=== PATIENT | female | born 1950 | race Caucasian/White ===

== ENCOUNTER 2018-02-03 08:06 | Day surgery (SDC) | payer MEDICARE, BC ==
[2018-02-03] MEDS ORDERED: KETAMINE HCL 100MG/1ML VIAL INJ ONE (08:07)
[2018-02-03] MEDS ORDERED: PROPOFOL 10 MG/ML VIAL IV ONE (08:07)
[2018-02-03] MEDS ORDERED: LIDOCAINE 1% W/EPI 1:200,000 MPF 30ML SQ ONE (08:07)
[2018-02-03] MEDS ORDERED: ACETAMINOPHEN 1,000 MG/100 ML BTL IV ONE (10:45)
[2018-02-03] MEDS ORDERED: CLINDAMYCIN PHOS/D5W 900MG 900 MG/50 ML BAG IVPB ONE (10:45)
--- NOTE | 2018-02-03 13:00 | Operative Note ---
DATE OF SURGERY: 02/03/2018 Surgeon: William Lawrence MD PREOPERATIVE DIAGNOSIS: Healing fracture of the right tibia. POSTOPERATIVE DIAGNOSIS: Healing fracture of the right tibia. OPERATION: Removal of proximal locking screw right tibia. Anesthesia: Local with sedation. PREPARATION: Chloraprep. INDIVIDUAL CONSIDERATIONS: None. PROCEDURE: The patient was taken to the operating room, had a successful induction of IV sedation. Her right leg was prepped and draped in the usual fashion. Lidocaine 1% was infiltrated around the proximal locking screw, an approximately 1 cm incision was then made. A [place] elevator was used to free the tissue on top of the screw. The screw was then easily removed. After gentle irrigation with saline, the skin was closed with bryson and a dressing was applied. She was taken back to recovery in good condition. There were no complications. MARCIE
== END 2018-02-03 10:45 | disposition home or self-care (01) ==
LOC: SUR 08:06
PROVIDERS: ATTEND Orthopaedic Surgery
DX: Z47.2 Encounter for removal of internal fixation device (principal); I10 Essential (primary) hypertension; E11.9 Type 2 diabetes mellitus without complications; Z79.4 Long term (current) use of insulin; E03.9 Hypothyroidism, unspecified
CPT/HCPCS: J3490